=== PATIENT | female | born 1965 | race Two or more races ===

== ENCOUNTER 2022-04-29 14:56 | Emergency (ER) | payer OTHER ==
[~2022-04-29] VITALS: Ht 157.5 cm; Wt 90.7 kg
[2022-04-29] MEDS ORDERED: AVAPRO150 MG (15:46)
[2022-04-29] MEDS ORDERED: IRBESARTAN-HCT1 EACH (15:46)
[2022-04-29] MEDS ORDERED: METFORMIN HCL1000 M3 (15:47)
== END 2022-04-29 22:09 | disposition home or self-care (01) ==
LOC: ER 14:56
DX: I82.402 Acute embolism and thrombosis of unspecified deep veins of left lower extremity (principal); Z88.6 Allergy status to analgesic agent